=== PATIENT | male | born 1975 | race African-American/Black ===

== ENCOUNTER 2016-11-02 15:50 | Observation (INO) ==
[2016-11-02] MEDS ORDERED: SODIUM CHLORIDE 0.9% 2,000 ML IV STA (16:06)
[2016-11-02 16:26] LABS: Apearance,Urine CLEAR (Clear); Bacteria,Urine Occasional /HPF (Few); Bilirubin,Urine Negative (Negative); Blood, Urine Large mg/dL (Negative); Glucose,Urine (UA) Negative (Negative); Ketones,Urine Negative (Negative); Mucus,Urine Occasional /LPF (Occasional); Nitrite,Urine Negative (Negative); Protein,Urine 100 MG/DL; RBC,Urine 2 /HPF (0-4); Squamous Epithelial Cell,Urine Occasional /HPF (0-10); Urine Color Yellow (Yellow); Urine Specific Gravity 1.015 (1.001-1.035); Urine Urobilinogen < 2.0 EU/DL (0.2-1.0); WBC,Urine 1 /HPF (0-6)
[2016-11-02] MEDS ORDERED: NALOXONE 0.4 MG/ML VIAL IV STA (16:48)
[2016-11-02] MEDS ORDERED: THIAMINE 200 MG/2 ML VIAL IV STA (16:48)
--- NOTE | 2016-11-02 16:48 | CT Report ---
History: Found unresponsive. Altered mental status Date: 11/02/2016 Study: CT head without contrast Comparison exam: No previous similar Transaxial CT sections were obtained through the head without IV contrast. This CT exam was performed using one or more the following dose reduction techniques: Automated exposure control, adjustment of the MA and/or KV according to patient size, or use of iterative reconstruction technique. The ventricles are midline in position without evidence of hydrocephalus. There is no mass or parenchymal hemorrhage. There is no gross CT evidence of acute cortical stroke. There is no extra-axial hematoma. There is no acute abnormality of the calvarium. There is mild polypoid mucosal thickening in the maxillary sinuses. The paranasal sinuses are clear. Impression: No acute intracranial process. Mild chronic maxillary sinus disease PROCEDURE INTERPRETED AT [facility] DEPARTMENT OF RADIOLOGY Final Report Signed by: Dr. Sandra Raman
[2016-11-02] MEDS ORDERED: THIAMINE 200 MG/2 ML VIAL ONE (16:49)
[2016-11-02] MEDS ORDERED: NALOXONE 0.4 MG/ML VIAL ONE (16:49)
--- NOTE | 2016-11-02 16:52 | CT Report ---
History: Found unresponsive. Altered mental status Date: 11/02/2016 Study: CT cervical spine without contrast Comparison exam: No previous Thin spiral CT sections were obtained through the cervical spine without IV contrast. Multiplanar reconstruction images are also evaluated. This CT exam was performed using one or more the following dose reduction techniques: Automated exposure control, adjustment of the MA and/or KV according to patient size, or use of iterative reconstruction technique. There is no fracture, subluxation, or prevertebral soft tissue swelling. There is some scattered mild to moderate cervical spondylosis, most prominent at C5-C6. The cervical disc spaces are fairly well-maintained. There is some broad-based mild disc bulge at C3-C4 which results in some mild to moderate narrowing of the spinal canal at this level. There is at least mild to moderate neural foraminal narrowing, left greater than right, at C3-C4 related to posterior lateral bulging disc Impression: No acute fracture. Disc bulging at C3-C4 which results in some mild to moderate narrowing of spinal canal PROCEDURE INTERPRETED AT [facility] DEPARTMENT OF RADIOLOGY Final Report Signed by: Dr. Sandra Raman
[2016-11-02 16:54] LABS: Barbiturates Screen,Urine Negative (Negative); Benzodiazepines Screen,Urine Negative (Negative); Cannabinoid Screen,Urine Positive (Negative); Opiate Screen,Urine Negative (Negative); Phencyclidine Screen,Urine Negative (Negative)
[2016-11-02] MEDS ORDERED: SODIUM CHLORIDE 0.9% 1,000 ML IV STA (16:58)
[2016-11-02 17:03] LABS: Basophils % 0.3 % (0.0-0.8); Eosinophils % 0.3 % (0.00-10.9); Hematocrit 37.6 VOL% (42.0-52.0); Hemoglobin 13.1 GM/DL (14.0-18.0); Immature Granulocytes % 0.6 %; Immature Granulocytes Absolute 0.07 #; Lymphocytes # 0.9 10*3/uL (1.4-4.0); Lymphocytes % 6.9 % (21.2-54.2); Mean Corpuscular HGB Conc 34.8 GM/DL (32-36); Mean Corpuscular Hemoglobin 32 PG (27-34); Mean Platelet Volume 8.9 FL (9.6-12.0); Monocytes # 0.7 10*3/uL (0.11-0.8); Monocytes % 5.9 % (1.7-12.7); Neutrophils # 10.6 10*3/uL (1.4-7.4); Platelet Count 256 T/CUMM (130-400); Red Blood Count 4.13 MC/CUMM (3.8-5.5); Red Cell Distribution Width 11.9 % (9.3-17.3); White Blood Count 12.3 T/CUMM (4-12)
--- NOTE | 2016-11-02 17:08 | XRay Report ---
History: Found unresponsive Date: 11/02/2016 Study: Chest x-ray single view portable Comparison exam: No previous chest x-ray available The cardiac silhouette is upper normal in size. There is no mediastinal mass. The lungs and pleural spaces are generally clear. There is no acute osseous abnormality. Impression: No acute cardiopulmonary process PROCEDURE INTERPRETED AT [facility] DEPARTMENT OF RADIOLOGY Final Report Signed by: Dr. Sandra Raman
[2016-11-02 17:12] LABS: INR 1.1; PT Patient Result 11.3 SECS
[2016-11-02 17:36] LABS: Ammonia 41 UMOL/L (11-32)
[2016-11-02 17:42] LABS: Potassium 3.8 MMOL/L (3.5-5.1); Sodium 141 MMOL/L (136-145)
[2016-11-02 17:43] LABS: Calcium 8.8 MG/DL (8.5-10.1)
[2016-11-02 17:45] LABS: Albumin 3.2 G/DL (3.4-5.0); Blood Urea Nitrogen 9 MG/DL (7-18); Glucose 69 MG/DL (74-106); Osmolality,Calculated 277.3 MOS/KG (273-304)
[2016-11-02 17:48] LABS: Alanine Aminotransferase 26 U/L (16-61); Aspartate Amino Transferase 27 U/L (0-37)
[2016-11-02 17:50] LABS: Bilirubin,Total < 0.39 MG/DL (0.2-1.0); Total Protein 6.6 G/DL (6.4-8.3)
[2016-11-02 17:51] LABS: Alkaline Phosphatase 99 U/L (45-117)
[2016-11-02 17:53] LABS: Troponin I Only 0.022 NG/ML (0.00-0.045)
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
[2016-11-02] MEDS ORDERED: ONDANSETRON 4 MG/2 ML VIAL IV PRN (18:39)
[2016-11-02] MEDS ORDERED: LORazepam 2 MG/1 ML VIAL IV PRN (18:42)
[2016-11-02] MEDS: DEXTROSE 5% NACL 0.45% 1,000 ML IV SCH (19:47)
[2016-11-02] MEDS ORDERED: PNEUMOCOCCAL VACCINE (23 VALENT) 0.5 ML VIAL IM ONE (20:55)
[2016-11-03 05:56] LABS: Basophils % 0.4 % (0.0-0.8); Eosinophils # 0.2 10*3/uL (0.0-0.87); Eosinophils % 1.9 % (0.00-10.9); Hematocrit 41.3 VOL% (42.0-52.0); Hemoglobin 13.6 GM/DL (14.0-18.0); Immature Granulocytes % 0.3 %; Immature Granulocytes Absolute 0.03 #; Lymphocytes # 2.2 10*3/uL (1.4-4.0); Lymphocytes % 21.4 % (21.2-54.2); Mean Corpuscular HGB Conc 32.9 GM/DL (32-36); Mean Corpuscular Hemoglobin 32 PG (27-34); Mean Corpuscular Volume 97.2 FL (87-102); Mean Platelet Volume 9.6 FL (9.6-12.0); Monocytes % 9.7 % (1.7-12.7); Neutrophils # 6.7 10*3/uL (1.4-7.4); Neutrophils % 66.3 % (38.7-73.9); Platelet Count 225 T/CUMM (130-400); Red Blood Count 4.25 MC/CUMM (3.8-5.5); Red Cell Distribution Width 12.1 % (9.3-17.3); White Blood Count 10.2 T/CUMM (4-12)
[2016-11-03] MEDS: DEXTROSE 5% NACL 0.45% 1,000 ML IV SCH ×4 (06:16→22:59)
[2016-11-03 06:22] LABS: Calcium 8.4 MG/DL (8.5-10.1); Osmolality,Calculated 276.3 MOS/KG (273-304); Potassium 4.3 MMOL/L (3.5-5.1)
--- NOTE | 2016-11-03 07:51 | EKG Report ---
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
--- NOTE | 2016-11-03 12:33 | Hospitalist Progress Note ---
Assessment and Plan (1) Polydrug abuse Status: Acute Assessment and plan: The patient will need placement in a rehab unit. Of talk to case management that is trying to get them replaced. So far they have not had any success. He is stable enough to be transferred from the ICU. Is not 101 is not homicidal and is not suicidal. Transfer him to regular medical floor Current Visit: Yes (2) Acute encephalopathy Status: Acute Assessment and plan: This is resolved at this point Current Visit: Yes (3) Essential hypertension Status: Acute Assessment and plan: Patient is a diastolic of 92 mmHg now. He tells me he takes medications at home which he does not remember. Affect and start him on Norvasc 2.5 mg daily Current Visit: Yes Hospitalist: Subjective Interval history: Patient has been seen interviewed and examined and chart has been reviewed; his gentleman was admitted to the hospital yesterday through the emergency room with a multidrug abuse intoxicants on delirium. His tox screen was positive for amphetamines cocaine and cannabinoids. Subjective information highly that he was using spice. He is now okay heart rate is normal blood pressure is normal he is able to communicate with me without any problems. Able to eat. In the morning his blood sugar was slightly low but after being fed blood sugar became normal. Exam - Constitutional Vitals: Period Temp Pulse Resp BP Sys/Alvarado Pulse Ox Last 24 Hr 97.0 F-98.7 F 56-120 10-21 83-160/39-109 89-100 General appearance: normal weight, no acute distress - Head Head exam: Present: normocephalic, atraumatic - Eye Eye exam: Present: EOMI Pupils: Present: TASHA - ENT ENT exam: Present: normal exam - Respiratory Respiratory exam: Present: clear to auscultation bilaterally - Cardiovascular Cardiovascular exam: Present: regular rate and rhythm - GI/Abdominal GI/Abdominal exam: Present: normal bowel sounds, soft - Extremities Exam Extremities exam: Present: full ROM - Neurological Exam Neurological exam: Present: alert, oriented X3, CN II-XII intact - Psychiatric Psychiatric exam: Present: normal affect, normal mood - Skin Skin exam: Present: normal color, warm, dry Results - Labs CBC & BMP: 11/03/16 04:52 11/03/16 04:52 Lab Results: I have reviewed the past 24 hour labs
[2016-11-03] MEDS: amLODIPine 2.5 MG TABLET PO SCH (13:44)
[2016-11-04] MEDS: DEXTROSE 5% NACL 0.45% 1,000 ML IV SCH (06:16)
[2016-11-04] MEDS: amLODIPine 2.5 MG TABLET PO SCH (08:36)
--- NOTE | 2016-11-04 15:12 | Hospitalist Progress Note ---
Assessment and Plan - Time spent with patient Time spent discussing smoking cessation with patient: 3 to 10 minutes (1) Essential hypertension Status: Acute Assessment and plan: The patient's metabolic encephalopathy has resolved. The patient's mood remains somewhat labile. The patient will rest overnight to consider his options and be discharged home tomorrow. Current Visit: Yes Hospitalist: Subjective Interval history: The patient was admitted to the hospital after metabolic encephalopathy due to polypharmaceutical overdose. The patient is rational today and discussing his options with his mother and nurse case manager. I coordinate care with the patient's family and nurse case manager. The patient does not wish to have inpatient drug rehab. The patient desires to know his options for outpatient care. The nurse case manager is making a list of options for the patient. The patient will be discharged home tomorrow and I advised him to begin making plans for taking advantage of his options when he is discharged. Exam - Constitutional Vitals: Period Temp Pulse Resp BP Sys/Alvarado Pulse Ox Last 24 Hr 97.2 F-98.8 F 55-77 20-22 131-154/70-100 97-99 General appearance: no acute distress - ENT ENT exam: Present: normal exam - Respiratory Respiratory exam: Present: clear to auscultation bilaterally - Cardiovascular Cardiovascular exam: Present: regular rate and rhythm Results - Labs CBC & BMP: 11/03/16 04:52 11/03/16 04:52 Lab Results: I have reviewed the past 24 hour labs
[2016-11-04 20:27] VITALS: BP 139/87
[2016-11-05] MEDS: DEXTROSE 5% NACL 0.45% 1,000 ML IV SCH (00:21)
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
== END 2016-11-05 08:52 | disposition left against medical advice (07) ==
LOC: EDBD → N.ED 15:50 → N.EDINP 15:50 → SUATTDRO 18:10 → N.ICU 19:03 → N.4E 11-03 14:00
PROVIDERS: ADMIT Family Medicine; ATTEND Internal Medicine